=== PATIENT | female | born 1960 | race Native Hawaiian/Other Pacific Islander ===

== ENCOUNTER 2021-03-18 14:28 | Inpatient (IN) | payer BC ==
[2021-03-19 10:01] LABS: PLATELET COUNT 298 K/uL (152-353)
[2021-03-30 21:46] LABS: PLATELET COUNT 227 K/uL (152-353)
[2021-03-30 22:02] LABS: POTASSIUM 3.6 mmol/L (3.6-5.2)
[2021-04-04] MEDS ORDERED: CITALOPRAM20 M1 PO (15:16)
[2021-04-04] MEDS ORDERED: CITALOPRAM20 M1 PEG (15:19)
[2021-04-04] MEDS ORDERED: LEVAQUIN250 MG PEG ×2 (15:24→15:27)
[2021-04-04] MEDS ORDERED: LEVO0.1T6 PEG ×2 (15:28→15:29)
[2021-04-04] MEDS ORDERED: SEROQUEL25 MG PEG (15:31)
[2021-04-04] MEDS ORDERED: TAMSULOSIN0.4 MG PEG (15:32)
[2021-04-04] MEDS ORDERED: AMANTADINE100 M1 PEG (15:33)
[2021-04-04] MEDS ORDERED: CEFU500T2 PEG (15:34)
[2021-04-04] MEDS ORDERED: NEURONTIN250 MG/5 M PEG (15:39)
[2021-04-04] MEDS ORDERED: ALPR0.2566 PEG (15:40)
[2021-04-04] MEDS ORDERED: ONDANSETRON4 M2 PEG (15:41)
[2021-04-04] MEDS ORDERED: SCOP1.5D TD (15:44)
[2021-04-04] MEDS ORDERED: TYLENOL325 MG PEG (15:45)
[2021-04-04] MEDS ORDERED: ESTRADIOL0.1 MG/24 TD (15:55)
[2021-04-09] MEDS ORDERED: GUAI600T70 PO (13:15)
[2021-04-09] MEDS ORDERED: FLUC150T PO (13:17)
[2021-04-09] MEDS ORDERED: CLIN300C PO (13:21)
== END 2021-04-09 15:44 | disposition still patient (30) ==
LOC: PAVC 14:28
PROVIDERS: ADMIT Internal Medicine; ATTEND Internal Medicine
DX: I61.4 Nontraumatic intracerebral hemorrhage in cerebellum (principal); R13.12 Dysphagia, oropharyngeal phase; M62.81 Muscle weakness (generalized); Z74.1 Need for assistance with personal care; R26.2 Difficulty in walking, not elsewhere classified; R41.4 Neurologic neglect syndrome; Z93.1 Gastrostomy status
CPT/HCPCS: 36415; 80053; 80061; 81000; 82306; 82607; 82728; 82746; 83540; 83605; 83880; 84443; 85027; 87077; 87081; 87086; 87088; 87186

== ENCOUNTER 2021-03-29 14:21 | Outpatient (CLI) | payer BC | END 2021-03-29 22:21 | disposition home or self-care (01) | LOC: RAD 14:21 | PROVIDERS: ATTEND Internal Medicine | DX: R91.8 Other nonspecific abnormal finding of lung field (principal); R05 Cough ==

== ENCOUNTER 2021-04-04 11:19 | Inpatient (IN) | payer BC ==
[2021-04-04] VITALS (10 sets, daily range): BP systolic 115–165; BP diastolic 67–92; TEMP 97.1–98.6; Ht 172.7 cm; Wt 73.3 kg
[~2021-04-04] VITALS: Ht 172.7 cm; Wt 73.3 kg
[2021-04-04 12:28] LABS: PLATELET COUNT 444 K/uL (152-353)
[2021-04-04 12:35] LABS: POTASSIUM 3.5 mmol/L (3.6-5.2); SODIUM 139 mmol/L (136-145)
[2021-04-04 12:47] LABS: PARTIAL THROMBOPLASTIN TIME 25.9 SECONDS (24.5-33.6)
--- NOTE | 2021-04-04 14:20 | NUR ---
PT ARRIVED TO THE FLOOR VIA STRETCHER.
[2021-04-04] MEDS ORDERED: CITALOPRAM20 M1 PO (15:16)
[2021-04-04] MEDS ORDERED: CITALOPRAM20 M1 PEG (15:19)
[2021-04-04] MEDS ORDERED: LEVAQUIN250 MG PEG ×2 (15:24→15:27)
[2021-04-04] MEDS ORDERED: LEVO0.1T6 PEG ×2 (15:28→15:29)
[2021-04-04] MEDS ORDERED: SEROQUEL25 MG PEG (15:31)
[2021-04-04] MEDS ORDERED: TAMSULOSIN0.4 MG PEG (15:32)
[2021-04-04] MEDS ORDERED: AMANTADINE100 M1 PEG (15:33)
[2021-04-04] MEDS ORDERED: CEFU500T2 PEG (15:34)
[2021-04-04] MEDS ORDERED: NEURONTIN250 MG/5 M PEG (15:39)
[2021-04-04] MEDS ORDERED: ALPR0.2566 PEG (15:40)
[2021-04-04] MEDS ORDERED: ONDANSETRON4 M2 PEG (15:41)
[2021-04-04] MEDS ORDERED: SCOP1.5D TD (15:44)
[2021-04-04] MEDS ORDERED: TYLENOL325 MG PEG (15:45)
[2021-04-04] MEDS ORDERED: ESTRADIOL0.1 MG/24 TD (15:55)
--- NOTE | 2021-04-04 21:50 | NUR ---
AT PT'S BEDSIDE AT THIS TIME FOR PM MED PASS VIA PEG TUBE AND INTITATION OF NS FLUIDS AND IV ANTIBIOTICS. FLUSHED PEG TUBE WITH 30 ML OF WATER BEFORE AND AFTER PM MEDS. PT TOLERATED WELL AND NAD NOTED. PT IS IN A HIGH FOWLERS POSITION AT THIS TIME WITH BED IN LOWEST POSITION AND EDUCATED ABOUT CALL LIGHT LOCATION AND WHAT TO PRESS IF NEEDED. PT NODED IN UNDERSTANDING. PT IS CURRENTLY ON 2 L NC AT THIS TIME AND IS CURRENTLY SATTING 96%. PT ALSO HAD SMALL BOWEL MOVEMENT AT THIS TIME. PT CHANGED AND LINENS CHANGED.
[2021-04-05 03:50] VITALS: BP 104/60; TEMP 98.3
--- NOTE | 2021-04-05 04:10 | NUR ---
PT COMPLAINED OF IRRITATION OF THE 20G TO THE LAC. D/C'D IV SITE AT THIS TIME. PRESSURE APPLIED AND GAUZE PUT ON SITE. NEW 20 G TO THE RIGHT HAND INITIATED AT THIS TIME WITH GOOD BLOOD RETURN AND FLUSHES WELL. NO ERRYTHEMA OR EDEMA AT THE SITE. NAD NOTED.
--- NOTE | 2021-04-05 05:04 | NUR ---
LAB IS AT THE BEDSIDE. PATIENT THEN REAJUSTED
[2021-04-05 05:17] LABS: POTASSIUM 3.6 mmol/L (3.6-5.2)
[2021-04-05 05:27] LABS: PLATELET COUNT 354 K/uL (152-353)
--- NOTE | 2021-04-05 07:07 | NUR ---
Patient was admitted form the retirement and I talked with fady about yesterday and the resdient [facility] 2 weeks [facility]ao and I saw her last week with a nurse present and the resdient was on [employer] 1.4 and was being given orally and the resdient refused the night feeding and we went in that morning and she refuswed the 8:00 feeding that am and she stated she felt full and was not hungry and I talked with the nurse as well as Fady and the DON about. I made a recommendation for the patient to have continuous same formula and she was suppose to begin and now she is in the hospital. Patient is 5'8" at 160.4 lbs. and is a 60 YOF and IBW for height = 140+/-10% (126 to 154 lbs.) and kcal needs for IBW x 25 = 1600, x 30 = 1900, x 35 = 2200, and x 40 = 2500 kcal/day, protein needs x .8 to 1.5 = 51 to 95 grams per day and fluids for IBW x 25 = 1600, x 30 = 1900, x 35 = 2200 and x 40 = 2500 ml/cc per day. Patient has a history of CVA, Hypothyroid, Depression, Anxiety, Peropheral neuropathy, Dysphagia and patient has to be in the COVID unit and then Fady is going to do a study to see if she can eat food orally. Dysarthia d/t stroke, urinary retention, aspiration pneumonia, resdient is on multiple medicaitona dn I reviewed all, RDW 14.4 elevated, platelet count at 354 and is elevated. glucose 110 and now 123 and is elevated, alt 19 depressed, alb 3.1 depressed and is [facility] the [facility], dyspnea, N/v, resp., RLL pneumonia, with increased cough and hypoxia. RD Recommendations: 1-Monitor labs 2-Pt and OT to work with the patient 3-ST to evaluate and try and feed orally if possible 4-Suggest to continue with the tube feeding order and flushes from the retirement as the patient/resident can tolerate 5-May want to add a MVI 6-Add Vitamin C 50 mg BID 7-Add ZNSO4 220 mg per dya adn d/c in 14 days
[2021-04-05 08:00] VITALS: BP 100/59; TEMP 97.6
--- NOTE | 2021-04-05 10:58 | NUR ---
04/05/21 @1058 Daughter called to nursing station to check on pt. Updated on plan of care. Daughterstated will be in later today to see her mom.
--- NOTE | 2021-04-05 11:09 | NUR ---
PT SPO2 AT 98% AT 32% ON 3LPM NC. RT DECREASED FIO2 TO 28% AT 2LPM NC. WILL CONTINUE TO MONITOR AND WEAN FIO2 TO KEEP SPO2 GREATER THAN 92%
--- NOTE | 2021-04-05 11:27 | NUR ---
SPOKE WITH GHANSHYAM ESPAÑA LOCAL GOVERNMENT LEGISLATOR CONCERNING FEEDINGS. HER RECOMENDATIONS WERE FRO PT TO HAVE CONT FEEDINGS WITH KATEFARMS 1.4CAL/ML AT 60ML/HR CONT AT NIGHT AND INCREASE RATE TOELRATED BY PT. ALSO RECOMMENDED TO GIVE 60ML OF WATER BEFORE AND AFTER MEDS ALONG WITH 200ML OF WATER EVERY [address] YEPEZ OF RECOMMENDATIONS.
--- NOTE | 2021-04-05 11:33 | NUR ---
DR YEPEZ INFORMED OF FEEDING RECOMMENDATIONS AND TELEPHONE ORDERS WRITTEN AT THIS TIME
[2021-04-05 12:00] VITALS: BP 122/69; TEMP 97.5
--- NOTE | 2021-04-05 12:56 | NUR ---
04/05/2021 @1215 Pt's brief changed with yellow urine. Turned and repositioned pt on left side. Call light within reach.
--- NOTE | 2021-04-05 14:31 | NUR ---
pt.turned self from left side to supine postion. No distress noted
--- NOTE | 2021-04-05 15:48 | NUR ---
04/05/21 @6389 Pt. pulled up in bed. Brief changed, voided clear yellow urine. Pillows supplied in room for pt to elevate legs/feet. Daughter present in room and discussed plan of care. Dr. Chase in to see pt and daughter. Call light within reach. Pt alert and talking with daughter.
[2021-04-05 16:00] VITALS: BP 101/57; TEMP 97.4
--- NOTE | 2021-04-05 16:55 | NUR ---
Mouth care provided, Nystatin provided. Pt tolerated well, no complaints. Daughter at bedside
--- NOTE | 2021-04-05 17:33 | NUR ---
PT had loose, rattling cough but unable to cough up on own. Yankeur suction used but unsuccessful. No distress noted.
--- NOTE | 2021-04-05 18:47 | NUR ---
04/05/21 BRIEF CHANGED X 1 URINE CLEAR IN COLOR.REPOSTIONED MOUTH CARE PROVIDED.CALL LIGHT WITHIN REACH.CC
[2021-04-05 20:00] VITALS: BP 120/66; TEMP 97.5
--- NOTE | 2021-04-05 20:00 | NUR ---
ENTERED PATIENT'S ROOM AT THIS TIME. PATIENT RESTING QUIETLY IN BED WITH EYES CLOSED. SHE RESPONDED AND BECAME ALERT TO HER NAME BEING CALLED. SHE TRIED TO RESPOND TO QUESTIONS ASKED, BUT HER SPEECH IS VERY GARBLED AND HARD TO UNDERSTAND SECONDARY TO PREVIOUS CVA. RIGHT SIDED WEAKNESS NOTED BUT PATIENT IS ABLE TO MOVE ALL FOUR EXTREMITIES. HOB ELEVATED TO AT LEAST 30 DEGREES. MEDICATIONS GIVEN VIA PEG TUBE. 20G TO RIGHT HAND PATENT AND INTACT. NO ERYTHEMA OR SWELLING NOTED. NS CURRENTLY INFUSING @ 50ML/HR. CONTINUOUS PEG FEEDING STARTED AT THIS TIME. KANGAROO PUMP SET TO 60ML/HR WITH H20 FLUSHES (200ML) Q6H. NO CONCERNS OR COMPLAINTS VOICED AT THIS TIME. BED LOCKED AND IN LOWEST POSITION. HOB ELEVATED. SR UP X 2. CALL LIGHT WITHIN REACH.
[2021-04-06] VITALS: BP 95/54; TEMP 97.8
--- NOTE | 2021-04-06 | NUR ---
V/S SHOW BP OF 94/55- WILL CONTINUE TO MONITOR BP. CONTINUOUS FEEDING OF KATEFARMS INFUSING @ 60ML/HR. PATIENT RESTING QUIETLY IN BED WITH EYES CLOSED. RESPIRATIONS EVEN AND UNLABORED. NAD NOTED. CALL LIGHT WITHIN REACH.
--- NOTE | 2021-04-06 01:45 | NUR ---
RECHECKED B/P AT THIS TIME. . PATIENT CONTINUES TO REST QUIETLY IN BED. NAD NOTED. CALL LIGHT WITHIN REACH.
[2021-04-06 04:00] VITALS: BP 100/51; TEMP 98.2
[2021-04-06 05:46] LABS: PLATELET COUNT 366 K/uL (152-353)
[2021-04-06 05:49] LABS: POTASSIUM 4.1 mmol/L (3.6-5.2)
[2021-04-06 08:00] VITALS: BP 100/61; TEMP 97.6
--- NOTE | 2021-04-06 08:35 | NUR ---
IN PT'S ROOM TO ADMINISTER MORNING MEDICATIONS. PT IS TRYING TO COMMUNICATE WITH BACK TACKER BUT HAS GARBLED SPEECH THAT IS HARD TO IDENTIFY WORDS. PT'S FEEDING HAS NOW FINISHED AND BEEN FLUSHED. RESIDUAL WAS PRESENT AND PT RECIEVED 60 ML BEFORE AND AFTER MED ADMINISTRATION. A TOTAL OF 200 ML OF INTPUT WAS ADMINISTERED ALONG WITH MEDICATIONS. PEG TUBE WAS LEFT CLASPED SHUT AND WRAPPED IN A CHUX PADS. PT WAS LEFT IN HIGH FOWLERS AT 45 DEGREES. PT BEGAN TO COUGH AFTER PEG TUBE WAS CLOSED, PT'S CHEST WAS LISTENED TO AGAIN AND SOUNDED CLEAR IN THE TOP LOBES. NYSTATIN WAS ADMINISTERED TO THE PT'S MOUTH BY SOAKING AN ORAL SPONGE WITH THE NYSTATIN AND JACQUELINE IT TO THE SIDES OF THE MOUTH, GUMS, AND TONGUE. PT SHOWS NO SIGNS OF DISTRESS AT THIS TIME.
--- NOTE | 2021-04-06 09:27 | NUR ---
WENT IN PT'S ROOM TO CHECK ON HER. PT IS STILL RESTING IN HIGH FOWLERS. PRODUCTION GRADER ASKED PT IF SHE WOULD LIKE THE TV ON AND PT STATED "NO" AND SHOOK HER HEAD TO SIGNIFY NO. PT IS NOT SHOWING ANY DIFFICULTY BREATHING OR COUGHING AT THIS TIME. PT IS TRYING TO COMMUNICATE VERBALLY WITH PRODUCTION GRADER BUT IS DIFFICULT TO UNDERSTAND.
--- NOTE | 2021-04-06 11:06 | NUR ---
PT RECIEVED A BED BATH ALONG WITH LINEN CHANGE. PT WAS ABLE TO ROLL FROM SIDE TO SIDE ON HER OWN WITHOUT DIFFICULTY AND FOLLOWED VERBAL DIRECTIONS ACCURATELY. PT TRIES TO COMMUNICATE BUT IS VERY DIFFICULT TO UNDERSTAND. PENSION EXAMINER TURNED ON TV AND LEFT PATIENT IN HIGH FOWLERS. PT IS VERY CONTENT AT THIS TIME AND SHOWING NO SIGNS OF DISTRESS.
[2021-04-06 12:00] VITALS: BP 103/56; TEMP 97.5
--- NOTE | 2021-04-06 12:19 | NUR ---
CLINDAMYCIN HAS BEEN HUNG. IV FLUSHED WITHOUT DIFFICULTY AND SHOWS NO SIGNS O ABNORMALITY. PT IS NOW EXHIBITING A VERY LOOSE AND RATTLING COUGH. NYSTATIN WAS APPLIED TO THE GUMS, INSIDE OF CHEEKS, AND TONGUE BY USING AN ORAL SPONGE. PT WAS LEFT IN HIGH FOWLERS WITH EYES CLOSED.
--- NOTE | 2021-04-06 14:31 | NUR ---
200ML OF WATER HAS BEEN USED TO FLUSH THE PEG TUBE. PEG TUBE FLUSHED WITHOUT ANY DIFFICULTY, SMALL AMOUNT OF RESIDUAL WAS PULLED BACK PRIOR TO FLUSHING. PT HAS COUGHED SOME SPUTUM INTO HER BASIN AT BEDSIDE. SPUTUM HAS A GREENISH TINT BUT IS MOSTLY CLEAR. PT NO LONGER HAS LOOSE RATTLING COUGH. PT HAS FAMILY MEMBER AT BEDSIDE AT THIS TIME.
[2021-04-06 16:00] VITALS: BP 103/58; TEMP 97.9
--- NOTE | 2021-04-06 17:46 | NUR ---
PT BRIEF HAS BEEN CHANGED, ONLY URINE WAS PRESENT. PT HAS BEEN LEFT IN HIGH FOWLERS WITH BED LOCKED AND IN LOWEST POSITION WITH CALL LIGHT WITHIN REACH. PT SHOWS NO SIGNS OF DISTRESS AT THIS TIME AND IS AWAKE AND ALERT.
--- NOTE | 2021-04-06 20:00 | NUR ---
PATIENTS FEEDING STARTED AT THIS TIME. PATIENT TOLERATING WELL. NO ACUTE DISTRESS NOTED. CALL LIGHT WITHIN REACH. WILL CONTINUE TO MONITOR.
[2021-04-06 20:03] VITALS: BP 113/69; TEMP 97.7
[2021-04-07] VITALS: BP 85/45; TEMP 97.8
[2021-04-07 04:00] VITALS: BP 106/62; TEMP 98.1
--- NOTE | 2021-04-07 07:46 | NUR ---
PT IS RESTING IN LOW FOWLERS WITH EYES CLOSED AND O2 ON. CONTINUOUS FEEDING PUMP IS GOING AT A RATE OF 60 ML/HR. BREATHING IS EVEN AND NONLABORED, NO COUGH NOTED. WHEN ELECTRIC FREIGHT CAR OPERATOR CAME IN THE DOOR PT STATED "MORNING". SPEECH WAS CLEAR AT THAT TIME.
[2021-04-07 08:00] VITALS: BP 113/61; TEMP 97.5
--- NOTE | 2021-04-07 08:45 | NUR ---
IN PT'S ROOM FOR MED ADMINISTRATION ALONG WITH ALEXANDRO DUMONT RN. PT BEGAN TO GRIMACE, WHEN ASKED IF SHE WAS IN PAIN SHE STATED "YES". WHEN ASKED WHERE SHE BEGAN TO WIGGLE HER TOES AND STATED "TOES". PT TRIED TO COMMUNICATE MORE BUT SPEECH WAS TOO GARBLED TO UNDERSTAND. PRN DOSE OF ACETAMINOPHEN HAS BEEN GIVEN THROUGH PEG TUBE WITH 60 ML OF WATER BEFORE AND AFTER ADMINISTRATION.
--- NOTE | 2021-04-07 09:18 | NUR ---
LAB CALLED TO REPORT THAT BLOOD CULTURE CAME BACK POSITIVE FOR STAPHYLCOCCUS AUREUS. CONTACT PRECAUTIONS WILL NOW BE PUT INTO PLACE.
--- NOTE | 2021-04-07 09:30 | NUR ---
IN PT RM DUE TO PT COUGHING, SUCTIONED PT AT THIS TIME WITH MINIMAL RETURN NOTED, PT HAS SMALL AMOUNT OF THICK LIGHT GREEN FROTHY SPUTUM NOTED IN BASIN AT THIS TIME, PT LYING IN HF, NAD NOTED, CALL LIGHT WITHIN REACH, WILL CONTINUE TO MONITOR
--- NOTE | 2021-04-07 10:08 | NUR ---
REPORTED BLOOD CULTURE RESULTS TO DR. ENGLISH, DR. ENGLISH STATES SHE WILL D/C L[facility], NO NEW ORDERS GIVEN AT THIS TIME
--- NOTE | 2021-04-07 11:33 | NUR ---
PT'S BRIEF HAS BEEN CHANGED, YELLOW URINE PRESENT. PT ABLE TO ROLL FROM SIDE TO SIDE AND FOLLOW VERBAL INSTRUCTIONS. BED LINENS WERE CHANGED ALONG WITH BRIEF. NO REDNESS NOTED ON THE SACRAL AREA DURING CHANGE. PT CONTINUES TO HAVE A LOOSE AND RATTLING COUGH, COUGHING UP CLEARISH SPUTUM INTO HER BASIN AT BEDSIDE. PT HAS A SIGNIFICANT AMOUNT OF HAIR ON HER PILLOW DUE TO UNKNOWN REASONS WITH A SMALL BALD AREA AT THE CROWN OF HER HEAD. PT IS LEFT TO REST IN HIGH FOWLERS WITH CALL LIGHT WITHIN REACH AND BASIN AT BEDSIDE.
[2021-04-07 12:00] VITALS: BP 106/61; TEMP 98.1
--- NOTE | 2021-04-07 14:08 | NUR ---
PT'S BRIEF HAS BEEN CHANGED, ONLY URINE PRESENT. PT ROLLED IN THE BED WITHOUT DIFFICULTY, NO REDNESS PRESENT ON SACRAL AREA. PT IS IN HIGH FOWLERS WITH EYES CLOSED. CLINDAMYCIN IS FINISHED RUNNING IN AND PT IS NOW SALINE LOCKED. PT IS SHOWING NO SIGNS OF DISTRESS AT THIS TIME, JUST SEEMS VERY TIRED.
[2021-04-07 14:31] LABS: PLATELET COUNT 439 K/uL (152-353)
[2021-04-07 14:40] LABS: POTASSIUM 4.1 mmol/L (3.6-5.2)
--- NOTE | 2021-04-07 14:57 | NUR ---
ADMINISTERED 1444 DOSE OF ONDANSETRON THROUGH PEG TUBE. RESIDUAL WAS PRESENT PRIOR TO ADMINISTERING MEDICATION, RESIDUAL WAS THICK AND APPEARED TO HAVE SOME MUCOUS MIXED IN. 200ML OF WATER WAS USED TO FLUSH PEG TUBE ACCORDING TO DOCTORS ORDER TO FLUSH PEG Q6H WITH 200ML OF WATER.
[2021-04-07 16:00] VITALS: BP 114/66; TEMP 97.4
--- NOTE | 2021-04-07 17:00 | NUR ---
WAS IN PT'S ROOM FOR ADMINISTRATION OF GABAPENTIN. WAS AT BEDSIDE, WASTEWATER SUPERVISOR INFORMED PT'S ABOUT POSITIVE BLOOD CULTURE AND EDUCATED ON CONTACT PRECAUTIONS. PT'S VERBALIZED UNDERSTANDING. GABAPENTIN WAS ADMINISTERED THROUGH THE PEG TUBE WITH 60ML BEFORE AND AFTER MED ADMINISTRATION. PT IS SHOWING NO SIGNS OF DISTRESS, PT IS COMMUNICATING SLIGHTLY CLEARER THAN YESTERDAY.
[2021-04-07 20:00] VITALS: BP 112/63; TEMP 97.4
--- NOTE | 2021-04-07 20:00 | NUR ---
ENTERED PATIENT'S ROOM. PATIENT RESTING QUIETLY IN BED. RESPIRATIONS EVEN AND UNLABORED. PATIENT IS NOTED TO HAVE RHONCHI IN UPPER LOBES BILATERALLY. NC INTACT @ 2L/MIN. SHE DOES HAVE A PRODUCTIVE COUGH WITH A SMALL AMOUNT OF THIN, YELLOW-GREEN COLORED SPUTUM. 20G TO RIGHT HAND FLUSHED WITH NS. IV SITE NOTED TO BE LEAKING. I INFORMED THE PATIENT THAT I WOULD COME BACK TO TRY TO FIND ANOTHER IV SITE. SHE VERBALIZED UNDERSTANDING. BED LOCKED AND IN LOWEST POSITION. HOB ELEVATED 30 DEGREES. CALL LIGHT WITHIN REACH.
--- NOTE | 2021-04-07 21:00 | NUR ---
PATIENT LYING IN BED WITH HOB ELEVATED 30 DEGREES. EYES CLOSED. RESPIRATIONS EVEN AND UNLABORED. TUBING FOR KANGAROO PUMP CHANGED AND PRIMED. SETTINGS SET TO: FEEDING @ 60ML/HR WITH WATER FLUSHES 200ML/HR Q6H. MEDICATIONS GIVEN VIA PEG TUBE. CONTINUOUS FEEDING INFUSING VIA PEG TUBE. PATIENT RESTING QUIETLY IN BED. CALL LIGHT WITHIN REACH.
--- NOTE | 2021-04-07 22:30 | NUR ---
3 ATTEMPTS MADE TO OBTAIN NEW IV SITE. THIRD ATTEMPT SUCCESSFUL. 20G TO LEFT HAND.
[2021-04-08] VITALS (7 sets, daily range): BP systolic 91–125; BP diastolic 43–68; TEMP 97.4–98.5
--- NOTE | 2021-04-08 03:00 | NUR ---
LEVAQUIN FINISHED INFUSING. 20G TO LEFT HAND FLUSHED WITH NS WITH NO DIFFICULTIES. MOUTH CARE PERFORMED ON PATIENT. RESTING QUIETLY NOW WITH EYES CLOSED. RESPIRATIONS EVEN AND UNLABORED. NAD NOTED. CALL LIGHT WITHIN REACH.
[2021-04-08 05:58] LABS: PLATELET COUNT 419 K/uL (152-353)
[2021-04-08 06:09] LABS: POTASSIUM 4.5 mmol/L (3.6-5.2)
--- NOTE | 2021-04-08 06:10 | NUR ---
0530- RECHECKED PATIENT'S B/P. MANUAL B/P OF 96/54. PATIENT RESTING IN BED WITH EYES CLOSED. RESPIRATIONS EVEN AND UNLABORED. 0610- SYNTHROID AND NYSTATIN GIVEN VIA PEG TUBE AT THIS TIME. FEEDING RESUMED. PATIENT DID COUGH AND I ATTEMPTED TO ELEVATE HOB MORE THAN 30 DEGREES. PATIENT STATES SHE DID NOT WANT HER HEAD ELEVATED THAT MUCH. I DID EXPLAIN TO HER THAT IT WOULD NEED TO REMAIN ELEVATED DURING FEEDINGS AT LEAST 30 DEGREES TO PREVENT ASPIRATION. SHE VERBALIZED UNDERSTANDING. 20G TO LEFT HAND FLUSHED WITH NS WITH NO COMPLICATIONS. CALL LIGHT WITHIN REACH.
--- NOTE | 2021-04-08 08:30 | NUR ---
PATIENT RESTING IN BED. NAD NOTED. MORNING MEDICATIONS ADMINISTERED VIA PEG TUBE WITH 60 ML FLUSH BEFORE AND AFTER. TOTAL VOLUME INSTILLED 140ML.
--- NOTE | 2021-04-08 16:00 | NUR ---
PATIENT RESTING IN BED. NAD NOTED. MEDICATIONS ADMINISTERED VIA PEG TUBE. FLUSHED WITH 60 ML OF WATER BEFORE AND AFTER. TOTAL VOLUME INSTILLED 140 ML. PATIENT TOLERATED WELL. 20 G IV TO LEFT HAND IS POSITIONAL WITH MILD DISCOMFORT. IV FLUSHES WITH MINIMAL DISCOMFORT. IV CLINDAMYCIN STARTED. WILL CONTINUE TO MONITOR.
--- NOTE | 2021-04-08 21:15 | NUR ---
PT LAYING IN BED IN A HIGH FOWLERS POSITION WITH 2L NC INTACT AND SATTING 97% AT THIS TIME. PT'S BP AT THIS TIME IS 110/53. NAD NOTED. TUBING FOR KANGEROO PUMP CHANGED, FLUSHED AND PRIMED. SETTINGS ALREADY SET FOR 60 ML/HR WITH WATER FLUSHES Q6H. KATEFARM FEEDINGS 1.4 JEY/ML INFUSING INTO PEG TUBE AT THIS TIME. MEDICATIONS GIVEN VIA PEG TUBE. FLUSHED 60ML OF WATER BEFORE AND AFTER CRUSHED MEDICATIONS. PT TOLERATED WELL. PT IS RESTING QUIETLY IN BED WITH CALL LIGHT WITHIN REACH.
[2021-04-09 04:01] VITALS: BP 101/59; TEMP 97.6
[2021-04-09 05:57] LABS: PLATELET COUNT 416 K/uL (152-353)
[2021-04-09 08:00] VITALS: BP 105/61; TEMP 97.9
[2021-04-09 12:00] VITALS: BP 108/65; TEMP 97.4
[2021-04-09] MEDS ORDERED: GUAI600T70 PO (13:15)
--- NOTE | 2021-04-09 13:15 | NUR ---
EMS CALLED TO TRANSPORT PT TO [place]. STATED THAT IT WOULD BE ABOUT 30 MINUTES TO ARRIVE.
[2021-04-09] MEDS ORDERED: FLUC150T PO (13:17)
--- NOTE | 2021-04-09 13:20 | NUR ---
REPORT CALLED TO [facility]. REPORT GIVEN TO MUSTAPHA AMAYA LPN. AWAITING TRANSPORT. 20 G PERIPHERAL IV AND TELEMETRY D/C.
[2021-04-09] MEDS ORDERED: CLIN300C PO (13:21)
--- NOTE | 2021-04-09 15:00 | NUR ---
[facility]
== END 2021-04-09 14:55 | DRG 178 ==
LOC: ED 11:19 → MED/SURG 12:30
PROVIDERS: Hospitalist; ADMIT Internal Medicine; ATTEND Internal Medicine
DX: J69.0 Pneumonitis due to inhalation of food and vomit (principal); R78.81 Bacteremia; B37.0 Candidal stomatitis; B95.62 Methicillin resistant Staphylococcus aureus infection as the cause of diseases classified elsewhere; E03.8 Other specified hypothyroidism; F41.8 Other specified anxiety disorders; R33.8 Other retention of urine; I69.391 Dysphagia following cerebral infarction; I69.322 Dysarthria following cerebral infarction; R13.19 Other dysphagia; Z93.1 Gastrostomy status; R09.02 Hypoxemia; G62.89 Other specified polyneuropathies
CPT/HCPCS: 36415; 80048; 80053; 81000; 82550; 83605; 83880; 84484; 85007; 85027; 85610; 85730; 87040; 87077; 87185; 87186; 87205; 87635; 90686; 93005; 94640; 94664; 94760; 96365; 99284; J0132; J1956; J2405; J3490; U0003

== ENCOUNTER 2021-04-09 16:50 | Inpatient (IN) | payer BC ==
[~2021-04-09 16:50] MED LIST: ALPR0.2566 PEG; AMANTADINE100 M1 PEG; CEFU500T2 PEG; CITALOPRAM20 M1 PEG; CITALOPRAM20 M1 PO; CLIN300C PO; ESTRADIOL0.1 MG/24 TD; FLUC150T PO; GUAI600T70 PO; LEVAQUIN250 MG PEG; LEVO0.1T6 PEG; NEURONTIN250 MG/5 M PEG; ONDANSETRON4 M2 PEG; SCOP1.5D TD; SEROQUEL25 MG PEG; TAMSULOSIN0.4 MG PEG; TYLENOL325 MG PEG
== END 2021-05-03 11:00 | disposition home or self-care (01) ==
LOC: PAVC 16:50
PROVIDERS: ADMIT Internal Medicine; ATTEND Internal Medicine
DX: I61.4 Nontraumatic intracerebral hemorrhage in cerebellum (principal); R13.12 Dysphagia, oropharyngeal phase; M62.81 Muscle weakness (generalized); Z74.1 Need for assistance with personal care; R26.2 Difficulty in walking, not elsewhere classified; R41.4 Neurologic neglect syndrome; Z93.1 Gastrostomy status

== ENCOUNTER 2021-04-27 04:44 | Outpatient (CLI) | payer BC | END 2021-04-27 05:55 | disposition home or self-care (01) | LOC: CT 04:44 | PROVIDERS: ATTEND Internal Medicine | DX: I69.122 Dysarthria following nontraumatic intracerebral hemorrhage (principal) ==